=== PATIENT | male | born 1985 | race Caucasian/White ===

== ENCOUNTER 2020-07-09 19:30 | Emergency (ER) | payer OTHER ==
[2020-07-09] MEDS ORDERED: ERYTHROMYCIN O3.5 GM OD (20:31)
[2020-07-09] MEDS ORDERED: IBUPROFEN600 MG PO (20:31)
== END 2020-07-09 21:00 | disposition home or self-care (01) ==
LOC: ER1 19:30
DX: T15.91XA Foreign body on external eye, part unspecified, right eye, initial encounter (principal)
CPT/HCPCS: 90715; 99283